=== PATIENT | male | born 1990 | race African-American/Black ===

== ENCOUNTER 2021-12-29 05:47 | Inpatient (IN) ==
[2021-12-29 07:28] LABS: ALT 14 U/L (7-52); AST 17 U/L (13-39); Acetaminophen < 15 mcg/mL; Albumin 4.4 g/dL (3.2-5.2); Albumin/Globulin Ratio 1.7 (1-3); Alcohol, S < 13 mg/dL (<13); Alkaline Phosphatase 66 U/L (35-149); Anion Gap 6 mmol/L (2-11); Blood Urea Nitrogen 18 mg/dL (6-24); CO2 Carbon Dioxide 28 mmol/L (22-32); Calcium 9.5 mg/dL (8.6-10.3); Chloride 104 mmol/L (101-111); Globulin 2.6 g/dL (2-4); Glucose 85 mg/dL (70-100); Salicylate < 2.50 mg/dL (<30); Sodium 138 mmol/L (135-145); eGFR CKD-EPI 84.3 (>60)
[2021-12-29 07:36] LABS: HIV 4th Generation Nonreactive (Nonreactive)
[2021-12-29 07:43] LABS: TSH Ultra Thyroid Stim Horm 0.47 mcIU/mL (0.34-5.60)
[2021-12-29] MEDS ORDERED: Nicotine GUM 4MG FRUIT FLAVOR PO PRN (11:07)
[2021-12-29] MEDS ORDERED: Al Hydrox/Mg Hydrox/Simet LIQ 30 ML UDC PO PRN (11:07)
[2021-12-29 12:38] LABS: Hepatitis B Surface Antigen Nonreactive (Nonreactive)
[2021-12-29 12:55] LABS: Hepatitis B Surface Ab Not Immune (Immune); Hepatitis C Antibody Negative (Negative)
[2021-12-30 07:37] VITALS: BP 132/80
[2021-12-30] MEDS ORDERED: OLANZapine 5 mg TAB *ODT PO PRN (14:09)
== END 2021-12-31 14:35 | disposition home or self-care (01) | DRG 897 ==
LOC: ED 05:47 → EDHOLD 11:08 → BSU 13:21
PROVIDERS: ADMIT Psychiatry & Neurology Psychiatry; ATTEND Psychiatry & Neurology Psychiatry